=== PATIENT | female | born 1950 | race American Indian/Alaskan Native ===

== ENCOUNTER 2025-05-19 13:31 | Emergency (ER) | payer MEDICARE, OTHER ==
[~2025-05-19] VITALS: Ht 167.6 cm; Wt 55.1 kg
[~2025-05-19 13:31] MED LIST: AZO URINARY P99.5 MG PO; AZO URINARY TR1 EAC1 PO; BUSPIRONE HCL10 MG PO; CEFPODOXIME PR200 MG PO; FERRETTS I40 MG/15 M PO; HYDROCODON-ACE1 EAC8 PO; HYDROXYZINE HCL25 MG PO; NALOXONE HCL4 MG NAS; OMEPRAZOLE10 MG PO; OMEPRAZOLE20 MG PO; ONDANSETRON ODT4 MG PO; QUETIAPINE FUMA25 MG PO; VITAMIN D350 MCG PO; ZOLPIDEM TART6.25 MG PO
--- OUTSIDE RECORDS SUMMARY | 2025-05-19 13:38 | XMS ---
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 Glo VISIT COUNT (12 MO.) 20 [facility] ([place]) 10 Moose Kwong ([facility]) 2 THEO Smith TOTAL 32 NOTE: Visits indicate total known visits. ED/UCC VISIT TRACKING (12 MO.) 05/19/2025 13:32 [facility] [place] TYPE: Emergency COMPLAINT: - WEAKNESS 05/15/2025 14:07 [facility] [place] TYPE: Emergency COMPLAINT: - URINARY ISSUES 05/13/2025 16:49 [facility] [place] ([place]) TYPE: Emergency DIAGNOSES: - Acute upper respiratory infection, unspecified - Malingerer [conscious simulation] - Patient's noncompliance with other medical treatment and regimen due to unspecified reason - Abdominal Pain - Cough - Sore Throat 04/21/2025 23:27 [facility] [place] ([place]) TYPE: Emergency DIAGNOSES: - Other specified injuries of thorax, initial encounter - Fall - Rib Pain 04/21/2025 17:43 [facility] [place] ([place]) TYPE: Emergency DIAGNOSES: - Chronic pain syndrome - Cystitis, unspecified without hematuria - Abdominal Pain 04/18/2025 16:19 [facility] Ese MALLOY ([place]) TYPE: Emergency DIAGNOSES: - Chronic pain syndrome - Insomnia, unspecified - Insomnia - Medication Refill - Pain - Pain,Sleep 04/13/2025 18:30 Moose GannBelgica YNA RECIO [place] ([facility]) TYPE: Emergency DIAGNOSES: - Chronic pain syndrome - Other specified health status - Psychophysiologic insomnia - Medication reaction; Shakey - Medication Refill 02/19/2025 13:16 [facility] Ese MALLOY ([place]) TYPE: Emergency DIAGNOSES: - Other psychoactive substance use, unspecified, uncomplicated - Psychophysiologic insomnia - med refill - Medication Refill 02/18/2025 20:03 Moose Bearnetta SanjuanitaBelgica H[facility]SON [place] ([place] ) TYPE: Emergency DIAGNOSES: - Psychophysiologic insomnia - Insomnia - Medication Refill 02/17/2025 12:09 [facility] [place] [facility] ([place]) TYPE: Emergency DIAGNOSES: - Chronic pain syndrome - anxious/ depressed - Insomnia - Pain 02/15/2025 17:35 [facility] Ese MALLOY ([place]) TYPE: Emergency DIAGNOSES: - Anxiety disorder, unspecified - Anxiety - poss anxiety 01/22/2025 16:32 Moose Bearnetta SanjuanitaBelgica GERARDO ([facility]) TYPE: Emergency DIAGNOSES: - Chronic pain syndrome - Back Pain 01/19/2025 11:26 [facility] Ese Mulligan GAMA ([place]) TYPE: Emergency DIAGNOSES: - Low back pain, unspecified - Other chronic pain - Pain in unspecified joint - med refill - Medication Refill 01/13/2025 18:06 [facility] [place] ([place] TYPE: Emergency DIAGNOSES: - Contusion of left shoulder, initial encounter - Unspecified fall, initial encounter - Knee Pain - lt shoulder pain, bilat knee pain - Shoulder Pain 12/29/2024 18:35 [facility] [place] ([place] TYPE: Emergency DIAGNOSES: - Lumbago with sciatica, left side - Lumbago with sciatica, right side - Other chronic pain - Pain in thoracic spine - Hip Pain (Non-traumatic) - hips pain 12/27/2024 15:09 [facility] [place] (Ese [place]) TYPE: Emergency DIAGNOSES: - Diplopia - Fall on same level from slipping, tripping and stumbling without subsequent striking against object, initial encounter - Pain in thoracic spine - Diplopia - fall - Nausea 12/24/2024 19:34 [facility] [place] (Ese Mull[place]) TYPE: Emergency DIAGNOSES: - Contusion of unspecified hip, initial encounter - Unspecified fall, initial encounter - back pain/fall - Fall 11/21/2024 16:40 [facility] [place] (Ese Mulligan) TYPE: Emergency DIAGNOSES: - Pain in left shoulder - Pleurodynia - Rib Pain - side pain 11/10/2024 20:03 [facility] [place] (Ese Mulligan) TYPE: Emergency DIAGNOSES: - Unspecified abdominal pain - abd pain, sob - Abdominal Pain - Cough 10[facility]26[facility]24 [facility] DIAGNOSES: - Cervicalgia - Pneumonia, unspecified organism - Pneumonia, unspecified organism - Cough - Shortness of Breath - sob Plus 12 More Visits INPATIENT VISIT TRACKING (12 MO.) 05/15/2025 20:06 [facility] [place] TYPE: Medical Surgical COMPLAINT: - ACUTE HYPOXIC RESPIRATORY FAILURE DIAGNOSES: - Acute respiratory failure with hypoxia - Acute respiratory failure with hypoxia - Allergy status to other drugs, medicaments and biological substances - Allergy status to other drugs, medicaments and biological substances - Allergy status to penicillin - Allergy status to penicillin - Anemia, unspecified - Anemia, unspecified - Anxiety disorder, unspecified - Anxiety disorder, unspecified - Do not resuscitate - Do not resuscitate - Insomnia, unspecified - Insomnia, unspecified - buttermaker helper (current) use of opiate analgesic - buttermaker helper (current) use of opiate analgesic - Other chronic pain - Other chronic pain - Other fpc (current) drug therapy - Other fpc (current) drug therapy - Other specified postprocedural states - Other specified postprocedural states - Personal history of other diseases of the digestive system - Personal history of other diseases of the digestive system - Pneumonia, unspecified organism - Pneumonia, unspecified organism - Presence of left artificial hip joint - Presence of left artificial hip joint - Urinary tract infection, site not specified - Weakness - Weakness 09/13/2024 10:24 Moose GERARDO ([facility]) TYPE: Internal Medicine DIAGNOSES: - Disorientation, unspecified - Pneumonia, unspecified organism - Sepsis, unspecified organism [email or web address]
[2025-05-19] MEDS ORDERED: SODIUM CHLORIDE 0.9% 500 ML IV ONE (16:00)
[2025-05-19] MEDS ORDERED: HYDROCODONE/ACETA 5/325 TAB PO ONE (16:00)
[2025-05-19 16:16] LABS: BASOPHILS 0.6 % (0.1-1.2); EOSINOPHILS 8.6 % (0.7-5.8); LYMPHOCYTES 20.6 % (19.3-51.7); MCH 28.4 PG (25.6-32.2); MCHC 30.6 g/dL (32.2-35.5); MCV 92.7 fL (79.4-94.8); MONOCYTES 5.6 % (4.7-12.5); NEUTROPHILS 64.0 % (34.0-71.1); RBC 3.28 M/uL (3.93-5.22)
[2025-05-19 16:38] LABS: ALT (SGPT) 38.0 U/L (14-59); AST (SGOT) 30.0 U/L (15-37); GLOMERULAR FILTRATION RATE,EST 97.0 mL/min (>60); PROTEIN, TOTAL 7.0 g/dL (6.4-8.2); UREA NITROGEN 15.0 mg/dL (7-18)
[2025-05-19 19:14] LABS: BLOOD/HGB, URINE NEGATIVE (Negative); KETONE, URINE NEGATIVE (Negative); LEUK ESTERASE, URINE NEGATIVE (negative); NITRITE, URINE NEGATIVE (negative)
[2025-05-19] MEDS ORDERED: HYDROCODONE/APAP 10/325 1 TAB PO ONE (21:00)
[2025-05-20] MEDS ORDERED: HYDROCODONE/APAP 10/325 1 TAB PO ONE ×2 (01:00→07:30)
[2025-05-20] MEDS ORDERED: LACTATED RINGER'S 1,000 ML IV ONE (03:15)
[2025-05-20] MEDS ORDERED: AMBIEN5 MG PO (07:24)
[2025-05-20] MEDS ORDERED: HYDROCODON-ACE1 EAC8 PO (07:24)
[2025-05-20] MEDS ORDERED: LEVOFLOXACIN750 MG PO (07:24)
--- NOTE | 2025-05-27 12:07 | NUR ---
SPOKE WITH SON MARIO. EMAILED [employer] FOR [facility].
== END 2025-05-20 08:12 | disposition home or self-care (01) ==
LOC: ED 13:31
PROVIDERS: Emergency Medicine
DX: J18.9 Pneumonia, unspecified organism (principal); R53.1 Weakness; Z88.0 Allergy status to penicillin; Z88.8 Allergy status to other drugs, medicaments and biological substances; Z79.899 Other long term (current) drug therapy
CPT/HCPCS: 36415; 74177; 80053; 81003; 85025; 85060; 99285-25; A9270; J2405; J7040; J7121; Q9967